=== PATIENT | male | born 1955 | race African-American/Black ===

== ENCOUNTER → 2017-08-22 | Outpatient (CLI) | payer OTHER ==
[~2017-08-22] VITALS: Ht 175.3 cm; Wt 100.9 kg
[~2017-08-22] MED LIST: BECL8.7A5 IH; DIAZ5 PO; DONE10TA8 PO; FAMO20 PO; FENT1PAT TD; GABA-531 PO; IBUP-1506 PO; LACT30L PO; LORA10TA7 PO; METH10 PO; MULT-75 PO; NAPR375T PO; OLAN5TAB2 PO; OMEP20 PO; PREG50 PO; ROSU20 PO; ZONI100 PO
[2017-08-22 08:19] VITALS: BP 141/85
== END | disposition home or self-care (01) ==
LOC: HBOWC 07:59
PROVIDERS: ATTEND Emergency Medicine
DX: E11.621 Type 2 diabetes mellitus with foot ulcer (principal); L97.512 Non-pressure chronic ulcer of other part of right foot with fat layer exposed; E11.42 Type 2 diabetes mellitus with diabetic polyneuropathy; M20.092 Other deformity of left finger(s); M20.091 Other deformity of right finger(s)
CPT/HCPCS: 11042

== ENCOUNTER → 2017-08-29 | Outpatient (CLI) | payer OTHER ==
[~2017-08-29] MED LIST changes: -BECL8.7A5 IH; -FENT1PAT TD; -METH10 PO; -OLAN5TAB2 PO; -OMEP20 PO; -PREG50 PO
[2017-08-29 08:45] VITALS: BP 134/72
== END | disposition home or self-care (01) ==
LOC: HBOWC 09:28
PROVIDERS: ATTEND Emergency Medicine
DX: E11.621 Type 2 diabetes mellitus with foot ulcer (principal); L97.418 Non-pressure chronic ulcer of right heel and midfoot with other specified severity; E11.42 Type 2 diabetes mellitus with diabetic polyneuropathy; M20.092 Other deformity of left finger(s); M20.091 Other deformity of right finger(s)
CPT/HCPCS: 11042

== ENCOUNTER 2018-03-18 12:01 | Emergency (ER) | payer OTHER ==
[~2018-03-18] VITALS: Ht 177.8 cm; Wt 103.6 kg
[2018-03-18 13:35] LABS: BASOPHILS % (AUTO) 0.8 % (0.0-2.0); EOSINOPHILS % (AUTO) 2.8 % (1.0-6.0); HEMATOCRIT 45.5 % (41-53); HEMOGLOBIN 14.5 g/dL (13.5-17.5); LYMPHOCYTES # (AUTO) 2.4 K/uL (1.0-4.8); LYMPHOCYTES % (AUTO) 29.7 % (22.0-44.0); MEAN CORPUSCULAR HGB CONC 31.8 G/dL (31.0-37.0); MEAN CORPUSCULAR VOLUME 85 fL (80-100); MONOCYTES # (AUTO) 0.5 K/uL (0.1-1.0); NEUTROPHILS # (AUTO) 4.9 K/uL (1.8-7.7); NEUTROPHILS % (AUTO) 60.7 % (40.0-70.0); PLATELET COUNT (AUTO) 161 K/uL (150-450); RED BLOOD CELL COUNT(AUTO) 5.37 MIL/uL (4.50-5.90); RED CELL DISTRIBUTION WIDTH 14.8 % (11.5-14.5)
[2018-03-18 13:54] LABS: ANION GAP 9 mmol/L (8-16); CALCIUM, TOTAL 9.6 mg/dL (8.8-10.5); CARBON DIOXIDE 28 mmol/L (22-29); CHLORIDE 106 mmol/L (98-107); CREATININE 1.22 mg/dL (0.60-1.30); GLOMERULAR FILTR. RATE CALC > 60 mL/min (>60); GLUCOSE,RANDOM 103 mg/dL (70-110); POTASSIUM 4.2 mmol/L (3.5-5.1); SODIUM SERUM 143 mmol/L (136-145); UREA NITROGEN, BLOOD 14 mg/dL (7-18)
[2018-03-18 13:59] LABS: ALANINE AMINOTRANSFERASE 31 U/L (12-78); ALBUMIN 4.2 g/dL (3.4-5.0); ALKALINE PHOSPHATASE 134 U/L (46-116); ASPARTATE AMINOTRANSFERASE 32 U/L (15-37); BILIRUBIN,TOTAL 0.3 mg/dL (0.1-1.0); TOTAL PROTEIN, SERUM 8.3 g/dL (6.4-8.2)
[2018-03-18 14:47] LABS: PROTHROMBIN TIME 10.7 SEC (9.4-11.6)
[2018-03-18 16:41] VITALS: BP 131/72
== END 2018-03-18 16:45 | disposition home or self-care (01) ==
LOC: EMS 12:02
DX: H53.8 Other visual disturbances (principal); E11.9 Type 2 diabetes mellitus without complications; E78.00 Pure hypercholesterolemia, unspecified; I10 Essential (primary) hypertension; G89.29 Other chronic pain; M19.90 Unspecified osteoarthritis, unspecified site; Z96.651 Presence of right artificial knee joint; Z88.0 Allergy status to penicillin; Z79.899 Other long term (current) drug therapy
CPT/HCPCS: 70450; 93005

== ENCOUNTER 2018-05-28 06:42 | Day surgery (SDC) | payer OTHER ==
[~2018-05-28] VITALS: Ht 177.8 cm; Wt 100.0 kg
[~2018-05-28 06:42] MED LIST changes: -ROSU20 PO; +ROSU20TA23 PO; +SODIUM CHLORIDE 0.9% 1,000 ML IV ONE
[2018-05-28] MEDS ORDERED: BENZOCAINE 20% 50 MCG/SPRAY 57 GM TP ONE (06:43)
[2018-05-28] MEDS ORDERED: LIDOCAINE 2% 30 ML JELLY TP ONE (06:43)
[2018-05-28] MEDS ORDERED: ALBUTEROL SULFATE 2.5 MG/0.5 ML NEB SOLUTION NEB ONE (06:43)
[2018-05-28] MEDS ORDERED: LIDOCAINE 4% 50 ML SOLUTION TP ONE (06:43)
[2018-05-28] MEDS ORDERED: SODIUM CHLORIDE 0.9% 1,000 ML IV ONE (07:00)
[2018-05-28] MEDS ORDERED: MIDAZOLAM HCL 2 MG/2 ML VIAL ONE (08:03)
[2018-05-28] MEDS ORDERED: FentaNYL CITRATE-PF 100 MCG/2 ML VIAL ONE (08:04)
[2018-05-28 08:13] LABS: GLUCOMETER DEV NAME(LOC) SDS.; GLUCOSE,POINT OF CARE 81 MG/DL (70-110)
[2018-05-28] MEDS ORDERED: ROSU20TA23 PO (08:21)
[2018-05-28] MEDS ORDERED: CLOT15CR5 TP (08:21)
[2018-05-28] MEDS ORDERED: NEOM1OIN8 TP (08:21)
[2018-05-28] MEDS ORDERED: LEVAHFA IH (08:21)
[2018-05-28] MEDS ORDERED: OMEP20 PO (08:21)
[2018-05-28] MEDS ORDERED: LORA10TA7 PO (08:21)
[2018-05-28] MEDS ORDERED: GABA-531 PO (08:21)
[2018-05-28] MEDS ORDERED: MULT-1203 PO (08:21)
[2018-05-28] MEDS ORDERED: OLAN5TAB2 PO (08:21)
[2018-05-28] MEDS ORDERED: ACYC200C PO (08:21)
[2018-05-28] MEDS ORDERED: NAPR-1193 PO (08:21)
[2018-05-28] MEDS ORDERED: BENZ1TAB10 PO (08:21)
[2018-05-28] MEDS ORDERED: MULT-12 PO (08:21)
[2018-05-28] MEDS ORDERED: TAMS-1 PO (08:21)
[2018-05-28] MEDS ORDERED: FLUT16H NASAL (08:21)
[2018-05-28] MEDS ORDERED: METF-960 PO (08:21)
[2018-05-28] MEDS ORDERED: DEXL60CA3 PO (08:21)
[2018-05-28] MEDS ORDERED: BECL10.62 IH (08:21)
[2018-05-28] MEDS ORDERED: MethylPREDNISolone SOD SUCC 125 MG/2 ML VIAL ONE (08:59)
[2018-05-28] MEDS ORDERED: MethylPREDNISolone SOD SUCC 125 MG/2 ML VIAL IVP ONE (09:00)
[2018-05-28] MEDS ORDERED: OXYGEN THERAPY IH SCH (20:00)
== END 2018-05-28 10:30 | disposition home or self-care (01) ==
LOC: SURGERY 06:42
PROVIDERS: ATTEND Internal Medicine Critical Care Medicine
DX: J38.4 Edema of larynx (principal); B37.0 Candidal stomatitis; K21.9 Gastro-esophageal reflux disease without esophagitis; Z88.0 Allergy status to penicillin; Z98.890 Other specified postprocedural states
CPT/HCPCS: 31623; 31624; 71045; 82962; 87015; 87070; 87101; 87206; 87220; 88108; 88312; J2250; J2930; J3010; J7030

== ENCOUNTER 2018-12-18 07:37 | Emergency (ER) | payer OTHER ==
[~2018-12-18] VITALS: Ht 177.8 cm; Wt 100.0 kg
[~2018-12-18 07:37] MED LIST changes: +ACYC200C PO; +BECL10.62 IH; +BENZ1TAB10 PO; +CLOT15CR5 TP; +DEXL60CA3 PO; -DIAZ5 PO; -DONE10TA8 PO; -FAMO20 PO; +FLUT16H NASAL; -IBUP-1506 PO; -LACT30L PO; +LEVAHFA IH; +METF-960 PO; +MULT-12 PO; +MULT-1203 PO; -MULT-75 PO; +NAPR-1193 PO; -NAPR375T PO; +NEOM1OIN8 TP; +OLAN5TAB2 PO; +OMEP20 PO; -SODIUM CHLORIDE 0.9% 1,000 ML IV ONE; +TAMS-1 PO; -ZONI100 PO
[2018-12-18] MEDS ORDERED: FAMO20 PO (08:12)
[2018-12-18] MEDS ORDERED: LANS15CA17 PO (08:12)
[2018-12-18] MEDS ORDERED: DONE5TAB5 PO (08:12)
[2018-12-18] MEDS ORDERED: IBUPROFEN 800 MG TABLET PO ONE (08:45)
[2018-12-18] MEDS ORDERED: TraMADol HCL 50 MG TABLET PO ONE (08:45)
[2018-12-18 08:46] VITALS: BP 134/61
== END 2018-12-18 08:56 | disposition home or self-care (01) ==
LOC: EMS 07:38
DX: S20.211A Contusion of right front wall of thorax, initial encounter (principal); E11.9 Type 2 diabetes mellitus without complications; E78.00 Pure hypercholesterolemia, unspecified; I10 Essential (primary) hypertension; G89.29 Other chronic pain; M19.90 Unspecified osteoarthritis, unspecified site; Z96.651 Presence of right artificial knee joint; Z79.899 Other long term (current) drug therapy; Z88.0 Allergy status to penicillin; W18.39XA Other fall on same level, initial encounter; Y93.89 Activity, other specified; Y92.89 Other specified places as the place of occurrence of the external cause; Y99.8 Other external cause status

== ENCOUNTER 2020-07-10 06:43 | Day surgery (SDC) | payer MEDICARE, OTHER ==
[~2020-07-10] VITALS: Ht 175.3 cm; Wt 96.4 kg
[~2020-07-10 06:43] MED LIST changes: -ACYC200C PO; -DEXL60CA3 PO; +DONE5TAB5 PO; +FAMO20 PO; +GABA-1181 PO; -GABA-531 PO; -MULT-12 PO; +MULT-13 PO; -OLAN5TAB2 PO; +OLAN5TAB52 PO; -OMEP20 PO; -ROSU20TA23 PO; +SODIUM CHLORIDE 0.9% 1,000 ML ONE; -TAMS-1 PO; +[UNRECOGNIZED DRUG - CODE] PO
[2020-07-10] MEDS ORDERED: MIDAZOLAM HCL 2 MG/2 ML VIAL ONE (07:15)
[2020-07-10] MEDS ORDERED: FentaNYL CITRATE PF 100 MCG/2 ML VIAL ONE (07:16)
[2020-07-10 07:43] LABS: COVID AG,FIA SOURCE NASOPHARYNGEAL
[2020-07-10] MEDS ORDERED: TAMS-13 PO (08:06)
[2020-07-10] MEDS ORDERED: ROSU20TA73 PO (08:06)
[2020-07-10] MEDS ORDERED: OMEP20 PO (08:06)
[2020-07-10 08:34] LABS: GLUCOMETER DEV NAME(LOC) SDS.; GLUCOSE,POINT OF CARE 89 MG/DL (70-110)
[2020-07-10] MEDS ORDERED: MethylPREDNISolone SOD SUCC 125 MG/2 ML VIAL IVP ONE (09:15)
[2020-07-10] MEDS ORDERED: MethylPREDNISolone SOD SUCC 125 MG/2 ML VIAL ONE (09:43)
[2020-07-10] MEDS ORDERED: SODIUM CHLORIDE 0.9% 1,000 ML IV ONE (13:00)
[2020-07-10] MEDS ORDERED: BENZOCAINE 20% 50 MCG/SPRAY 57 GM ONE (14:55)
[2020-07-10] MEDS ORDERED: ALBUTEROL SULFATE 2.5 MG/0.5 ML NEB SOLUTION NEB ONE (14:55)
[2020-07-10] MEDS ORDERED: LIDOCAINE 2% 30 ML JELLY ONE (14:55)
[2020-07-10] MEDS ORDERED: OXYGEN THERAPY IH SCH (20:00)
== END 2020-07-10 11:35 | disposition home or self-care (01) ==
LOC: SURGERY 06:43
PROVIDERS: ATTEND Internal Medicine Critical Care Medicine
DX: J38.4 Edema of larynx (principal); B37.0 Candidal stomatitis; I10 Essential (primary) hypertension; E11.9 Type 2 diabetes mellitus without complications; E78.00 Pure hypercholesterolemia, unspecified; Z98.890 Other specified postprocedural states; Z96.653 Presence of artificial knee joint, bilateral; Z79.899 Other long term (current) drug therapy
CPT/HCPCS: 31623; 31624; 71045; 82962; 87015; 87070; 87077; 87101; 87186; 87205; 87206; 87220; 87426; 88108; 88184; 88185; 88312; C9803; J2250; J2930; J3010; J7030; J7613

== ENCOUNTER 2022-08-10 06:38 | Day surgery (SDC) | payer MEDICARE, OTHER ==
[~2022-08-10] VITALS: Ht 175.3 cm; Wt 102.1 kg
[~2022-08-10 06:38] MED LIST changes: -BENZ1TAB10 PO; +BENZ1TAB84 PO; +DONE-52 PO; -DONE5TAB5 PO; -FLUT16H NASAL; +FLUT16SP NASAL; +LANS-74 PO; +METF-1211 PO; -METF-960 PO; +OMEP20 PO; +ROSU20TA73 PO; -SODIUM CHLORIDE 0.9% 1,000 ML ONE; +TAMS-13 PO; -[UNRECOGNIZED DRUG - CODE] PO
[2022-08-10] MEDS ORDERED: LIDOCAINE 4% 50 ML SOLUTION TP ONE (06:39)
[2022-08-10] MEDS ORDERED: BENZOCAINE 20% 50 MCG/SPRAY 57 GM TP ONE (06:39)
[2022-08-10] MEDS ORDERED: LIDOCAINE 2% 11 ML JELLY TP ONE (06:39)
[2022-08-10] MEDS ORDERED: SODIUM CHLORIDE 0.9% 1,000 ML IV ONE (07:00)
[2022-08-10] MEDS ORDERED: SODIUM CHLORIDE 0.9% 1,000 ML ONE (07:33)
[2022-08-10] MEDS ORDERED: MIDAZOLAM HCL 2 MG/2 ML VIAL ONE (07:53)
[2022-08-10] MEDS ORDERED: FentaNYL CITRATE PF 100 MCG/2 ML VIAL ONE (07:54)
[2022-08-10] MEDS ORDERED: BUPR-112 PO (08:47)
[2022-08-10] MEDS ORDERED: DIAZ10 PO (08:47)
[2022-08-10] MEDS ORDERED: QUET25TA PO (08:47)
[2022-08-10] MEDS ORDERED: MONT-35 PO (08:47)
[2022-08-10] MEDS ORDERED: MEMA10TA11 PO (08:48)
[2022-08-10] MEDS ORDERED: MethylPREDNISolone SOD SUCC 125 MG/2 ML VIAL IVP ONE (09:30)
[2022-08-10 09:38] LABS: GLUCOMETER DEV NAME(LOC) SDS.
[2022-08-10 09:40] VITALS: PULSE 60; RESP 23; O2SAT 100
[2022-08-10] MEDS ORDERED: MethylPREDNISolone SOD SUCC 125 MG/2 ML VIAL ONE (09:43)
== END 2022-08-10 11:25 | disposition home or self-care (01) ==
LOC: SURGERY 06:38
PROVIDERS: ATTEND Internal Medicine Critical Care Medicine
DX: J38.4 Edema of larynx (principal); B37.0 Candidal stomatitis; Z79.899 Other long term (current) drug therapy; Z98.890 Other specified postprocedural states; Z88.0 Allergy status to penicillin; E78.00 Pure hypercholesterolemia, unspecified
CPT/HCPCS: 31623; 88112; 82962; 87206; 87101; 87220; 87070; 31624; 71045; 87015; J3010; J2250; J2930; Q9967; J7030; Z7610